=== PATIENT | female | born 2005 | race Caucasian/White ===

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

== ENCOUNTER 2024-02-14 15:59 | Emergency (ER) | payer OTHER ==
[~2024-02-14] VITALS: Ht 165.1 cm; Wt 54.3 kg
[~2024-02-14 15:59] MED LIST changes: +CEPHALEXIN500 M1 PO; +MACROBID 100 M100 MG PO; +ONDANSETRON ODT8 MG PO; +PYRIDIUM200 MG PO
[2024-02-14] MEDS ORDERED: NEURONTIN100 MG PO (17:12)
[2024-02-14] MEDS ORDERED: ondansetron HCL 4 MG/2 ML VIAL IV ONE (18:45)
[2024-02-14] MEDS ORDERED: SODIUM CHLORIDE 0.9% 500 ML IV PRN (18:45)
[2024-02-14] MEDS ORDERED: KETOROLAC TROMETHAMINE 15 MG/ML VIAL IV ONE (18:45)
[2024-02-14 18:50] LABS: BILIRUBIN, URINE NEGATIVE (negative); BLOOD/HGB, URINE NEGATIVE (Negative); KETONE, URINE NEGATIVE (Negative); LEUK ESTERASE, URINE NEGATIVE (negative); NITRITE, URINE NEGATIVE (negative); PH, URINE 6.5 (5-7)
[2024-02-14 18:58] LABS: BASOPHILS 0.5 % (0-2); EOSINOPHILS 1.8 % (0-6); HEMATOCRIT 40.3 % (35.0-50.0); HEMOGLOBIN 13.7 g/dL (12.0-18.0); LYMPHOCYTES 41.5 % (24-44); MCH 30.6 (27-36); MCHC 33.8 g/dl (30-36); MCV 90.5 fl (81-99); MONOCYTES 9.8 % (0-12); NEUTROPHILS 46.4 % (39-80); PLATELET COUNT 197 K/uL (140-440); RBC 4.46 M/ul (4.3-5.7); RDW 12.7 (10.5-15.0)
[2024-02-14 19:28] LABS: ALBUMIN/GLOBULIN RATIO 1.08 (1.1-2.4); ANION GAP 13.8 (7-21); BILIRUBIN, TOTAL 0.3 ng/dL (0.2-1.0); BUN/CREATININE RATIO 10.11 (6.0-28.6); CALCIUM 8.8 mg/dL (8.5-10.1); CREATININE, SERUM 0.89 mg/dL (0.55-1.02); POTASSIUM 3.8 mmol/L (3.5-5.1); PROTEIN, TOTAL 7.7 g/dL (6.4-8.2)
[2024-02-14 20:39] VITALS: BP 113/58
== END 2024-02-14 20:38 | disposition home or self-care (01) ==
LOC: ED 15:59
PROVIDERS: Emergency Medicine
DX: R10.31 Right lower quadrant pain (principal); R10.32 Left lower quadrant pain; Z91.018 Allergy to other foods; Z79.899 Other long term (current) drug therapy
CPT/HCPCS: 36415; 76830; 76856; 80053; 81003; 84703; 85025; 96374; 96375; 99284-25; J1885; J2405

== ENCOUNTER 2024-05-17 05:32 | Day surgery (SDC) | payer OTHER ==
[2024-05-11 16:12] VITALS: BP 97/61
[~2024-05-17] VITALS: Ht 165.1 cm; Wt 55.4 kg
[~2024-05-17 05:32] MED LIST changes: +DEPO-PROVE150 MG/1 M IM; +IMITREX50 MG PO; +LACTATED RINGER'S 1,000 ML IV SCH; +NEURONTIN100 MG PO
[2024-05-17 06:09] VITALS: BP 120/75
[2024-05-17] MEDS ORDERED: KETOROLAC TROMETHAMINE 30 MG/ML VIAL ONE (06:33)
[2024-05-17] MEDS ORDERED: LIDOCAINE HCL 4% 5 ML AMP ONE (06:33)
[2024-05-17] MEDS ORDERED: SUCCINYLCHOLINE IN 0.9% NACL 200 MG/10 ML SYRINGE ONE (06:33)
[2024-05-17] MEDS ORDERED: fentaNYL citrate 100 MCG/2 ML VIAL ONE (06:33)
[2024-05-17] MEDS ORDERED: ondansetron HCL 4 MG/2 ML VIAL ONE (06:33)
[2024-05-17] MEDS ORDERED: LACTATED RINGER'S 1,000 ML IV ONE (06:33)
[2024-05-17] MEDS ORDERED: DEXAMETHASONE SOD PHOS 4 MG/ML VIAL ONE (06:33)
[2024-05-17] MEDS ORDERED: FAMOTIDINE 20 MG/ 2 ML VIAL ONE (06:33)
[2024-05-17] MEDS ORDERED: SCOPOLAMINE 1 MG/3 DAYS PATCH 1 EACH TDSY ONE (06:33)
[2024-05-17] MEDS ORDERED: SUGAMMADEX SODIUM 200 MG/2 ML ML ONE (06:33)
[2024-05-17] MEDS ORDERED: ROCURONIUM BROMIDE 50 MG/5 ML SYR ONE (06:33)
[2024-05-17] MEDS ORDERED: MIDAZOLAM HCL 2 MG/2 ML VIAL ONE (06:33)
[2024-05-17] MEDS ORDERED: propofoL 200 MG/20 ML VIAL ONE ×2 (06:33→06:37)
[2024-05-17] MEDS ORDERED: METOCLOPRAMIDE HCL 10 MG/2 ML SDV ONE (06:33)
[2024-05-17] MEDS ORDERED: dexmedeTOMIDine HCl 200 MCG/2 ML VIAL ONE (06:34)
[2024-05-17] MEDS ORDERED: IBLOOD GLUCOSE TEST STRIP 1 EA TEST VI PRN ×2 (07:00→08:15)
[2024-05-17] MEDS ORDERED: LIDOCAINE HCL 1% 5 ML SDV INJ ONE (07:00)
--- NOTE | 2024-05-17 07:38 | NUR ---
PT NOT AVAILABLE FOR VISIT. PROVIDED PRAYER.
[2024-05-17] MEDS ORDERED: ACETAMINOPHEN 1,000 MG/100 ML VIAL ONE (08:04)
[2024-05-17] MEDS ORDERED: droPERidol 5 MG/2 ML VIAL IV PRN (08:15)
[2024-05-17] MEDS ORDERED: METOCLOPRAMIDE HCL 10 MG/2 ML SDV IV PRN (08:15)
[2024-05-17] MEDS ORDERED: diphenhydrAMINE HCL 50 MG/ML VIAL IV PRN (08:15)
[2024-05-17] MEDS ORDERED: PROCHLORPERAZINE EDISYLATE 10 MG/2 ML VIAL IV PRN (08:15)
[2024-05-17] MEDS ORDERED: MEPERIDINE HCL 25 MG/1 ML VIAL IV PRN (08:15)
[2024-05-17] MEDS ORDERED: fentaNYL citrate 50 MCG/ML SDV IV PRN (08:15)
[2024-05-17] MEDS ORDERED: HYDROmorphone HCL 1 MG/ML SYR IV PRN (08:15)
[2024-05-17] MEDS ORDERED: NALOXONE HCL 0.4 MG SYR IV PRN ×2 (08:15→08:45)
[2024-05-17] MEDS ORDERED: MIDAZOLAM HCL 2 MG/2 ML VIAL IV PRN (08:15)
[2024-05-17] MEDS ORDERED: ondansetron HCL 4 MG/2 ML VIAL IV PRN ×2 (08:15→08:45)
[2024-05-17] MEDS ORDERED: ondansetron HCL 4 MG TAB PO PRN (08:45)
[2024-05-17] MEDS ORDERED: HYDROCODONE/ACETA 5/325 TAB PO PRN (08:45)
--- NOTE | 2024-05-17 09:00 | NUR ---
05/17/24 0900 Linda Gillespie PATIENT OPENS HER EYES. SHE FOLLOWS INSTRUCTIONS TO OPEN HER MOUTH. ORAL AIRWAY IS REMOVED.
[2024-05-17 09:24] VITALS: BP 104/63
--- NOTE | 2024-05-17 09:29 | NUR ---
0917- PT ARRIVES FROM PACU TO DAY SURGERY TREATMENT ROOM. PT IS SITTING UP IN SEMIFOWLERS AND IS ANSWERING QUESTIONS IS APPROPRIATLY AND EASILY FALLS BACK TO SLEEP. PT WAKES TO VERBAL STIMULI. PT DENIES PAIN AND NAUSEA. BEDSIDE REPORT RECIEVED FROM DOLORES ALONSO. BED IS IN THE LOWEST POSITION, WITH CALL LIGHT IN REACH AND BRAKES SET. VITAL SIGNS OBTAINED. PT SIPPING ON WATER OFF AND ON AND PROVIDED WITH JELLO. PLAN OF CARE DISCUSSED AND PT IS AGREEABLE. NO QUESTIONS OR CONCERNS AT THIS TIME.
--- NOTE | 2024-05-17 10:00 | NUR ---
Answered patient call light. patient stating that she feels the urge to urinate. I explained to patient that we need at least 100ml voided or we have to start over to meet discharge criteria. She expressed understanding and stated that she would still like to use the restroom. Patient disconnected from IV fluids, SCD's removed. Patient sat on the edge of the bed and stated taht she did not feel dizzy, only sore in her abdomen. Patient ambulated with a steady gait to the restroom. Patient was able to void. Some blood noted on the toilet paper and in hat. Patient ambulated well back to bed. Warm blankets provided. Water and jell-o at bedside and encouraged her to try to eat/drink. She denies any other needs at this time. Call light within reach.
[2024-05-17 10:18] VITALS: BP 107/53
--- NOTE | 2024-05-17 10:47 | NUR ---
1015- VITAL SIGNS OBTAINED. PT REPORTS SOME PAIN 7/10 BUT REPORTS WANTING TO TAKE MEDICATIONS AT HOME. PT DENIES NAUSEA. PT IS ABLE TO DRESS INDEPENDENTLY WITH NO ISSUES. SURGICAL SITES SHOW NO SIGNS OF DRAINAGE. PERIPAD HAD SOME RED DRAINAGE. 1040- DC INSTRUCTIONS GONE OVER. PT DENIES QUESTIONS OR CONCERNS. PT HAS PAPERWORK AND ALL BELONGINGS. PT IS ABLE TO AMBULATE INDEPENDENTLY TO WHEELCHAIR AND DC'S FROM DAY SURGERY. PT FATHER TO DRIVE HER HOME.
--- NOTE | 2024-05-24 13:16 | PATH ---
[facility] [address] [place], [place] [address] Signed SPECIMEN(S): A PERITONEAL WALL SPECIMEN SOURCE: A. PERITONEAL WALL CLINICAL HISTORY: Pelvic pain; dysmenorrhea; dyspareunia; dyschezia FINAL PATHOLOGIC DIAGNOSIS: Peritoneal wall: - Reactive features consistent with endometriosis. JVR:jcc:clv MICROSCOPIC EXAMINATION: Histologic sections of all submitted blocks are examined by light microscopy. These findings, together with the gross examination, support the pathologic diagnosis. Immunostains are performed with appropriate controls on block A1 and showing the following - CD68: Positive in cells of concern. - Cytokeratin AE1-AE3: Positive in cells of concern. - Er: Positive in epithelial and stromal cells of concern. - CD10: Positive in stromal cells of concern. JVR:jcc:clv GROSS DESCRIPTION: The specimen, labeled and designated "Kwan, peritoneal wall," is received in formalin and consists of two pink-page, focally congested soft tissue fragments that aggregate measure 1.1 x 0.7 x 0.2 cm. Entirely submitted in (A1). JS (under the direct supervision of a pathologist) The Gross Description was prepared using a voice recognition system. The report was reviewed for accuracy; however, sound-alike word errors, addition and/or deletions may occur. If there is any question about this report, please contact Client Services. ADDITIONAL NOTES: Immunohistochemical and/or in situ hybridization studies were performed on this case with the appropriate positive controls that react as expected. This test was developed and its performance characteristics determined by [facility]. It has not been cleared or PATIENT NAME: BRANDEN KWAN PATHOLOGY DATE OF : 03 REPORT #: [id number] PHYSICIAN: SHIVA PATHOLOGY PCP: HARSHAD DUNN PAC REPORT IS CONFIDENTIAL AND NOT TO BE RELEASED WITHOUT AUTHORIZATION [facility] [address] [place], [place] [address] Signed approved by the U.S. Food and Drug Administration. The FDA has determined that such clearance or approval is not necessary. This test is used for clinical purposes. It should not be regarded as investigational or for research. [facility] is certified under the Clinical Laboratory Improvement Amendments of 1988 (CLIA) as qualified to perform high complexity clinical laboratory testing. This assay has not been validated for specimens that have been decalcified. PERFORMING LABORATORY: Technical component was performed by [facility], [address] [place] [id number] (CLIA# [id number]). Professional interpretation was performed by [facility], [address] [place] [id number] (CLIA#: [id number]). Diagnostician: Jose Alejandro Shepard MD Pathologist Electronically Signed 05/24/2024 Copies: ~ PATIENT NAME: BRANDEN KWAN PATHOLOGY DATE OF : 03 REPORT #: [id number] PHYSICIAN: SHIVA MARTINEZ PCP: HARSHAD DUNN PAC REPORT IS CONFIDENTIAL AND NOT TO BE RELEASED WITHOUT AUTHORIZATION
== END 2024-05-17 10:40 | disposition home or self-care (01) ==
LOC: DS 05:32
PROVIDERS: ATTEND Obstetrics & Gynecology
PROC: 0UDB8ZZ Extraction of Endometrium, Via Natural or Artificial Opening Endoscopic (ICD-10-PCS; principal; 2024-05-17 07:30)
DX: N80.30 Endometriosis of pelvic peritoneum, unspecified (principal); G43.909 Migraine, unspecified, not intractable, without status migrainosus; Z79.899 Other long term (current) drug therapy; Z90.49 Acquired absence of other specified parts of digestive tract
CPT/HCPCS: 00840; J0131; J0330; J1100; J1885; J2250; J2405; J2704; J2765; J3010; J3490; J7121